=== PATIENT | female | born 1965 | race Two or more races ===

== ENCOUNTER 2018-10-27 15:19 | Emergency (ER) | payer MEDICAID, OTHER ==
[~2018-10-27] VITALS: Ht 167.6 cm; Wt 80.3 kg
[~2018-10-27 15:19] MED LIST: NAPR500T31
[2018-10-27 16:20] VITALS: BP 143/80
[2018-10-27 17:36] LABS: Albumin 3.4 g/dL (3.4-5.0); Anion Gap 13 (5-15); Blood Urea Nitrogen 20 mg/dL (7-18); Calcium 9.5 mg/dL (8.5-10.1); Carbon Dioxide 26 mmol/L (21-32); Chloride 102 mmol/L (98-107); GFR African American 70 mL/min; GFR Non-African American 58 mL/min; Glucose 254 mg/dL (74-106); Potassium 4.3 mmol/L (3.5-5.1); Sodium 141 mmol/L (136-145)
[2018-10-27] MEDS ORDERED: SODIUM CHLORIDE 0.9% 1,000 ML IV ONE ×2 (17:46)
[2018-10-27 17:55] LABS: Basophils # (auto) 0 uL; Basophils % (auto) 0.6 % (0.0-2.0); Eosinophils # (auto) 0 uL; Eosinophils % (auto) 0.5 % (0.0-7.0); Hematocrit 38.7 % (36.0-46.0); Hemoglobin 13.3 g/dL (12.2-16.2); Lymphocytes # (auto) 1.3 uL; Lymphocytes % (auto) 16.5 % (10.0-50.0); Mean Corpuscular Hemoglobin 29.1 pg (28.0-32.0); Mean Corpuscular Hgb Conc. 34.3 g/dL (32.0-36.0); Mean Corpuscular Volume 85.1 fL (80.0-100.0); Monocytes # (auto) 0.4 uL; Monocytes % (auto) 5.7 % (0.0-12.0); Neutrophils # (auto) 5.9 uL; Neutrophils % (auto) 76.7 % (37.0-80.0); Platelet Count (auto) 382 10^3/uL (140-450); Red Blood Cells 4.55 10^6/uL (4.0-5.20); Red Cell Distribution Width 14.3 % (11.8-14.3); White Blood Cell 7.7 10^3/uL (4.4-10.8)
[2018-10-27] MEDS ORDERED: ASPirin 81 mg TAB PO ONE (18:00)
[2018-10-27 18:31] LABS: Alanine Aminotransferase 21 U/L (13-56); Alkaline Phosphatase 74 U/L (45-117); Aspartate Aminotransferase 12 U/L (15-37); Bilirubin, Total 0.3 mg/dL (0.2-1.0); Total Protein 7.4 g/dL (6.4-8.2)
== END 2018-10-27 18:12 | disposition home or self-care (01) ==
LOC: EDBD 15:19 → ER 15:19
DX: F41.9 Anxiety disorder, unspecified (principal); E11.65 Type 2 diabetes mellitus with hyperglycemia; I10 Essential (primary) hypertension
CPT/HCPCS: 36415; 70450; 71045; 80053; 84484; 85025; 93005; 94761

== ENCOUNTER → 2023-01-15 | Emergency (ER) | payer MEDICAID ==
[~2023-01-15] VITALS: Ht 160 cm; Wt 70.7 kg
[~2023-01-15] MED LIST changes: +ACET500T58 PO; +IBUP-1454 PO; +KETOROLAC TROMETH 60MG/2ML VIAL IM ONE; +NAPR-746; -NAPR500T31; +ONDANSETRON ODT 4 MG TAB PO ONE
[2023-01-15 15:28] LABS: Urine Bacteria FEW /hpf (None Seen); Urine Blood Negative /uL (Negative); Urine Clarity Clear (Clear); Urine Color Yellow (Yellow); Urine Protein, UAD TRACE (Negative); Urine Specific Gravity 1.027 (1.001-1.035); Urine Urobilinogen Normal (Negative); Urine WBC 2 /hpf (0 - 5); Urine pH 5.5 (5.0-8.0)
[2023-01-15 15:39] VITALS: BP 131/68; PULSE 74; RESP 17; TEMP 98.2; O2SAT 95
== END | disposition home or self-care (01) ==
LOC: ER 14:09
DX: M54.41 Lumbago with sciatica, right side (principal); E11.9 Type 2 diabetes mellitus without complications; I10 Essential (primary) hypertension
CPT/HCPCS: 72100; 81001; 96372; 99283; J1885; Q0162